=== PATIENT | male | born 1960 | race Caucasian/White ===

== ENCOUNTER → 2019-01-10 | Outpatient (REF) | payer BC, OTHER | LOC: M LAB REF 16:10 | PROVIDERS: ATTEND Surgery | DX: D17.1 Benign lipomatous neoplasm of skin and subcutaneous tissue of trunk (principal) ==

== ENCOUNTER → 2019-02-21 | Outpatient (CLI) | payer BC ==
[~2019-02-21] MED LIST: CELE1CAP4 PO; LISI20TA PO; OMEP20CA4 PO
--- NOTE | 2019-02-21 21:08 | ECGEPIP ---
[facility] Test Date: 2019-02-21 Pat Name: KAMILAH BHATT Department: Room: - Gender: Male Clinical Abstractor: [facility] : 1960 Requested By: AQUILINO Reeves Order Number: [id number] Reading MD: Manny Birch Measurements Intervals [place] Rate: 90 P: 58 LA: 156 QRS: -53 QRSD: 101 T: 44 QT: 360 QTc: 441 Interpretive Statements Normal sinus rhythm Low QRS complex voltage in the limb leads Left axis deviation Delayed anterior R wave progression Comparison tracing not on file Electronically Signed on 02-21-2019 21:07:47 EDT by Manny Birch
== END ==
LOC: M EKG 16:22
PROVIDERS: ATTEND Anesthesiology
DX: Z01.818 Encounter for other preprocedural examination (principal); I10 Essential (primary) hypertension

== ENCOUNTER 2019-03-02 06:06 | Day surgery (SDC) | payer BC ==
[~2019-03-02] VITALS: Ht 185.4 cm; Wt 100.2 kg
[~2019-03-02 06:06] MED LIST changes: -LISI20TA PO; +LISI20TA18 PO; +LR 1,000 ML IV ONE
[2019-03-02] MEDS ORDERED: LIDOCAINE 1% MDV 20ML VIAL ONE (06:07)
[2019-03-02] MEDS ORDERED: BUPIVACAINE HCL 0.25% 30 ML VIAL ONE (06:07)
[2019-03-02] MEDS ORDERED: MIDAZOLAM INJ 2 MG/2 ML VIAL (J2250) As Ordered ONE ×2 (06:34→07:52)
[2019-03-02] MEDS ORDERED: fentaNYL 100 MCG/2 ML INJECTION (J3010) As Ordered ONE (06:34)
[2019-03-02] MEDS ORDERED: MIDAZOLAM INJ 2 MG/2 ML VIAL (J2250) IV ONE (07:45)
[2019-03-02] MEDS ORDERED: fentaNYL 100 MCG/2 ML INJECTION (J3010) IV ONE (07:45)
[2019-03-02] MEDS ORDERED: LIDOCAINE 2% INJ 100 MG/5 ML SDV (FOR ANES.) As Ordered ONE (07:52)
[2019-03-02] MEDS ORDERED: PROPOFOL 200 MG/20 ML VIAL As Ordered ONE (07:52)
[2019-03-02] MEDS ORDERED: fentaNYL 250 MCG/5 ML INJECTION (J3010) As Ordered ONE (07:52)
[2019-03-02] MEDS ORDERED: ROCURONIUM BROMIDE 50 MG/5 ML VIAL As Ordered ONE (07:52)
[2019-03-02] MEDS ORDERED: dexameTHASONE 4 MG/ML 1ML VIAL (J1100) As Ordered ONE (07:53)
[2019-03-02] MEDS ORDERED: DESFLURANE 240 ML INHALANT As Ordered ONE (08:19)
[2019-03-02] MEDS ORDERED: ONDANSETRON 4MG/2ML VIAL (J2405) As Ordered ONE (08:52)
[2019-03-02] MEDS ORDERED: SUGAMMADEX SODIUM 500 MG/5 ML VIAL (BRIDION) As Ordered ONE ×2 (08:52→08:54)
--- NOTE | 2019-03-02 10:23 | REP ---
REASON: Status post tendon debridement. No priors. Single spot view is obtained using a portable C-arm device in my [place]. Air density is seen in the region of the tendocalcaneus insertion. The os calcis was only partially imaged. Fluoroscopy time was not recorded. Electronically Signed by Bony Smith DO 03/02/2019 12:31 P
[2019-03-02] MEDS ORDERED: oxyCODONE 5MG TAB PO PRN (10:30)
[2019-03-02] MEDS ORDERED: LR 1,000 ML IV SCH ×2 (10:30)
[2019-03-02] MEDS ORDERED: METOCLOPRAMIDE INJ 10MG/2ML VIAL (J2765) IV PRN (10:30)
[2019-03-02] MEDS ORDERED: PROMETHAZINE INJ 25 MG/ML VIAL (J2550) IV PRN (10:30)
[2019-03-02] MEDS ORDERED: fentaNYL 100 MCG/2 ML INJECTION (J3010) IV PRN (10:30)
[2019-03-02] MEDS ORDERED: HYDROMORPHONE HCL 0.5 MG/ 0.5 ML SYRINGE (J1170 PER 1) IV PRN (10:30)
[2019-03-02 13:00] VITALS: BP 159/92
--- NOTE | 2019-03-23 00:32 | RO ---
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 PROCEDURE: 1. Left Achilles debridement and repair. 2. Calcaneal exostectomy. SURGEON: Alyse Yanez MD OFFICE SYSTEM ANALYST: RADHA Matias ANESTHESIA: General endotracheal with popliteal nerve block. SPECIMEN: Achilles. ESTIMATED BLOOD LOSS: 10 mL. COMPLICATIONS: None. CONDITION: Stable to recovery. IMPLANTS: PEEK 5.5 x 14.7 mm Arthrex Suture [place], double loaded. INDICATIONS: Alden Chilel is a 58-year-old male with longstanding pain in the region of his left Achilles. Risks and benefits of surgery were discussed with the patient in detail, and he elected to proceed with debridement of his Achilles tendon and excision Brenda's deformity. Informed consent was obtained in the office. Risks included but were not limited to infection, damage to nerves and blood vessels, continued pain and stiffness, need for additional procedures. DESCRIPTION OF PROCEDURE: The patient was met in the preoperative holding area where his left lower extremity was marked as the correct operative site. He was then taken to the post-anesthesia care unit (PACU) where he underwent a popliteal nerve block. From there, the patient was taken to the operating room where he underwent general anesthesia. A well-padded tourniquet was placed on his left upper thigh. He was placed into the prone position. Bony prominences were well padded. Left lower extremity underwent chlorhexidine scrub. It was then prepped and draped in the normal sterile fashion. Antibiotics were given within 60 minutes prior to incision. Following this, an official time-out was held where the correct patient, operative site and operative procedure were verified. Appropriate radiographs and MRI was displayed in the operating room. An incision was made directly midline over the Achilles tendon. The peritenon was identified and incised. This was tagged for later closure. The midsubstance of the Achilles tendon was found to be quite thickened throughout. There was significant tendinotic issue. The tendon was split midline and the tendinotic tissue was debrided. 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 A power rasp was used to contour the edges. Following this, the majority of the tendinotic tissue had been removed. There was approximately 50% of the tendon left and so decision was made to not transfer the FHL tendon. Using a single suture anchor, 5.5 mm Arthrex double-loaded PEEK anchor, this was implanted into the area of calcaneal exostectomy. The Achilles insertion was then secured in a Cheo-Zen type stitch. The tendon split was then closed using a running #0 Vicryl. The peritenon was closed using a #2-0 Vicryl in a running fashion. Of note, wound had been copiously irrigated prior to this. Retrocalcaneal bursa had been debrided as well. After the peritenon was closed, the skin was closed using #3-0 Vicryl and #3-0 nylon. The patient was placed into a well-padded splint. He was brought back to the supine position and extubated without difficulty. He was transferred to the recovery room in stable condition. PLAN: The patient will be non-weightbearing in the right lower extremity for 6 weeks. He will be on aspirin for deep vein thrombosis (DVT) prophylaxis. I will see him back in a week for a wound check. He will practice strict elevation until his sutures are removed.
== END 2019-03-02 13:15 | disposition home or self-care (01) ==
LOC: M SDC 06:06
PROVIDERS: ATTEND Orthopaedic Surgery
DX: M76.62 Achilles tendinitis, left leg (principal); M77.32 Calcaneal spur, left foot; I10 Essential (primary) hypertension; K21.9 Gastro-esophageal reflux disease without esophagitis; Z79.899 Other long term (current) drug therapy
CPT/HCPCS: 27654; 28118; 73650; 88304; C1713; J0690; J1100; J2250; J2405; J3010